=== PATIENT | female | born 1975 | race Caucasian/White ===

== ENCOUNTER → 2021-07-29 | Outpatient (CLI) | payer BC ==
[~2021-07-29] MED LIST: ARMO120T PO; SETL1TAB PO
== END ==
LOC: M LABSMTC 10:05
PROVIDERS: ATTEND Anesthesiology
DX: Z01.812 Encounter for preprocedural laboratory examination (principal); Z11.52 Encounter for screening for COVID-19

== ENCOUNTER 2021-08-03 05:59 | Day surgery (SDC) | payer BC ==
[2021-08-03] VITALS (9 sets, daily range): BP systolic 109–127; BP diastolic 57–68
[~2021-08-03] VITALS: Ht 160 cm; Wt 84.4 kg
[2021-08-03] MEDS ORDERED: ceFAZolin SOD 2 GM in IV 1 EA IV ONE (06:00)
[2021-08-03] MEDS ORDERED: LR 1,000 ML IV ONE (06:00)
[2021-08-03] MEDS ORDERED: LIDOCAINE 1% MDV 20ML VIAL SQ PRN (06:00)
[2021-08-03 06:54] LABS: HCG, SERUM QUALITATIVE NEGATIVE (NEGATIVE)
[2021-08-03] MEDS ORDERED: SCOPOLAMINE 1MG TRANSDERMAL PATCH TOP ONE (07:05)
[2021-08-03] MEDS ORDERED: propofoL 200 MG/20 ML VIAL As Ordered ONE (07:55)
[2021-08-03] MEDS ORDERED: SUGAMMADEX SODIUM 500 MG/5 ML VIAL (BRIDION) As Ordered ONE (07:55)
[2021-08-03] MEDS ORDERED: dexameTHASONE 4 MG/ML 1ML VIAL (J1100 PER 1MG) As Ordered ONE (07:55)
[2021-08-03] MEDS ORDERED: LIDOCAINE 2% 100MG/5ML SDV (FOR ANES.) As Ordered ONE (07:55)
[2021-08-03] MEDS ORDERED: MIDAZOLAM INJ 2MG/2ML VIAL (J2250 PER 1MG) As Ordered ONE (07:55)
[2021-08-03] MEDS ORDERED: ONDANSETRON 4MG/2ML VIAL As Ordered ONE (07:55)
[2021-08-03] MEDS ORDERED: ROCURONIUM BROMIDE 50 MG/5 ML VIAL As Ordered ONE ×2 (07:55→08:16)
[2021-08-03] MEDS ORDERED: HYDROmorphone HCL 2 MG/ML 1ML VIAL As Ordered ONE (07:55)
[2021-08-03] MEDS ORDERED: KETOROLAC 60MG 2ML VIAL As Ordered ONE (07:55)
[2021-08-03] MEDS ORDERED: fentaNYL 100 MCG/2 ML INJECTION (J3010) As Ordered ONE (07:55)
[2021-08-03] MEDS ORDERED: ACETAMINOPHEN 1000MG 100ML IV BTL (OFIRMEV) (J0131 PER 10MG) As Ordered ONE (07:55)
[2021-08-03] MEDS ORDERED: GLYCOPYRROLATE INJ 0.2 MG/ML 2 ML VIAL As Ordered ONE (08:21)
[2021-08-03 08:31] LABS: HEMATOCRIT 41.5 % (36.0-47.0); HEMOGLOBIN 13.7 g/dl (12.0-15.5); MEAN CORPUSCULAR HEMOGLOBIN 28.7 pg (27.0-33.0); PLATELET COUNT, AUTOMATED 210 10^3/uL (150-450); RED BLOOD COUNT 4.77 10^6/uL (4.00-5.40); WHITE BLOOD COUNT 5.9 10^3/uL (4.0-10.0)
[2021-08-03] MEDS ORDERED: MORPHINE 1MG/ML IN 0.9% NACL 100ML IV BAG As Ordered ONE (09:53)
[2021-08-03] MEDS ORDERED: EPIDURAL/PCA KEYS XX PRN (10:15)
[2021-08-03] MEDS ORDERED: NS 1,000 ML IV SCH (10:15)
[2021-08-03] MEDS ORDERED: MORPHINE 1MG/ML IN 0.9% NACL 100ML IV BAG IV PRN (10:15)
[2021-08-03] MEDS ORDERED: oxyCODONE 5MG TAB PO PRN (10:15)
[2021-08-03] MEDS ORDERED: HYDROMORPHONE HCL 0.5 MG/ 0.5 ML SYRINGE (J1170 PER 1) IV PRN (10:15)
[2021-08-03] MEDS ORDERED: NALBUPHINE HCL 10 MG/ML AMP (J2300) IV PRN (10:15)
[2021-08-03] MEDS ORDERED: LR 1,000 ML IV SCH (10:15)
[2021-08-03] MEDS ORDERED: ONDANSETRON 4MG/2ML VIAL IV PRN (10:15)
[2021-08-03] MEDS ORDERED: diphenhydrAMINE 50MG/ML VIAL (J1200) IV PRN (10:15)
[2021-08-03] MEDS ORDERED: fentaNYL 100 MCG/2 ML INJECTION (J3010) IV PRN (10:15)
[2021-08-03] MEDS ORDERED: NALOXONE INJ 0.4MG/1ML VIAL (J2310 PER 1MG) IV PRN (10:15)
[2021-08-03] MEDS: AZELASTINE 137MCG NASAL SPY 30 ML (ASTELIN) SCH (11:00)
[2021-08-03] MEDS: LORATADINE 10 MG TAB PO SCH (11:00)
[2021-08-03] MEDS: LR 1,000 ML IV SCH ×2 (14:32→21:02)
[2021-08-03] MEDS: IBUPROFEN 600MG TAB PO PRN ×2 (15:41→23:35)
--- NOTE | 2021-08-03 16:32 | RO ---
OPERATIVE NOTE DATE OF OPERATION: 08/03/2021 PREOPERATIVE DIAGNOSIS/INDICATIONS FOR SURGERY: Pain, bleeding, fibroids. POSTOPERATIVE DIAGNOSIS: Pain, bleeding, fibroids. PROCEDURE: Robotic-assisted hysterectomy with bilateral salpingo-oophorectomy. SURGEON: Courtney Silvestre MD LACQUERER: Mariposa Rosales ANESTHESIA: General endotracheal anesthesia. DESCRIPTION OF PROCEDURE/FINDINGS: Marita was brought to the OR where sufficient general endotracheal anesthesia was induced. She was prepped, draped and positioned in the usual fashion. The uterine manipulator was placed after the uterus had been sounded to 12. Attention was turned to the abdomen. Transverse semilunar incision was made below the umbilicus. Sharp and blunt dissection were continued through subcutaneous tissue to the level of the rectus fascia where transverse incision was made, #0 Vicryl retention sutures were placed and the peritoneum was entered under direct visualization with open laparoscopic technique. The Corine cannula was then placed and CO2 insufflation begun. After adequate CO2 insufflation the peritoneal cavity was visualized. There were normal shiny peritoneal surfaces throughout. There were no excrescences, ascites, or exudate. The ovaries were normal in appearance. There were some minor adhesions of the descending colon along the left side as is very common, these are pictured, again quite minor. There were definitely large fibroids and recruited blood supply and varicosities, also as noted in the operative photos as would be expected with this fibroid uterus. The two left-sided, one right-sided ports were placed and then attention was turned to work from the console. Working from the robotic console, the left infundibulopelvic ligament was obscured by those adhesions so they were brought down using cold scissors and then infundibulopelvic ligament elevated. We were readily able to identify the ureters in this patient and they were well away from our field of dissection. We cauterized the infundibulopelvic, carefully dissected through it, again using bipolar cautery and then cold scissors. We proceeded through the posterior leaflet of the broad ligament on the left side to the round ligament which was then transected as well. We moved our attention to the patient's right side where similarly we isolated the infundibulopelvic, cauterized and transected it and continued that dissection to the round. Having dissected the round on both sides we back-filled the bladder and were able to confirm its location. We then marked and dissected the peritoneal surface over the cup because we knew there was a good blood supply and before we approached all that we wanted our landmarks marked and the dissection begun where it was accessible. In the midline anteriorly and posteriorly we were able to get a good initial dissection to isolate those areas. We then cauterized the uterine vasculature on the patient's right side and then went to the left where there was considerably more varicosities and cauterized that as well. We did not transect the vasculature until we had done that initial cauterization and of course on the left side where there were all those varicosities after we cauterized we had to cauterize again after some dissection because dissection exposed more vessels as is typical in those cases. Having cauterized and then eventually transected the uterine vasculature, we were able to create the colpotomy anteriorly, we were able to start that dissection and we had already gotten the bladder well away so we continued that dissection along the left side, across posteriorly and then up across the right side and with the cervix completely transected we were able with some manipulation to deliver the uterus into the vagina. Despite the multiple fibroids it was narrow and long rather than super wide fortunately which certainly facilitates careful delivery into the vagina. We used the uterus to maintain pneumo while we then closed the vaginal cuff. There were vaginal pumpers on both angles so we separately took V-Locs for the angles to control these before we completed the closure of the cuff and with this we had good approximation and hemostasis achieved. We waited, let some of the pressure down, we did some more and irrigated and suctioned to confirm that we had good hemostasis. We went ahead and released the pneumo abdominally, removed the instruments and closed the umbilical wound with deep closure of #0 Vicryl retention sutures and then skin with 3-0 Vicryl. The skin was used on the 8 mm ports, two on the left and one on the right as well. After closure of the wound with good approximation and hemostasis dry, sterile dressings were applied. ESTIMATED BLOOD LOSS FOR THE PROCEDURE: About 50 mL. FLUID REPLACEMENT: Crystalloid. COMPLICATIONS: None. CONDITION AND DISPOSITION: Marita tolerated the procedure well and was recovering in the recovery room in good condition.
[2021-08-04 02:03] VITALS: BP 113/64
[2021-08-04] MEDS ORDERED: NORCO, ANEXSIA 5/325MG TABLET (HYDROcodone/ACETAMINOPHEN) PO PRN (06:00)
[2021-08-04 06:22] VITALS: BP 114/57
[2021-08-04] MEDS: IBUPROFEN 600MG TAB PO PRN (07:50)
[2021-08-04] MEDS: AZELASTINE 137MCG NASAL SPY 30 ML (ASTELIN) SCH (07:56)
[2021-08-04] MEDS: LORATADINE 10 MG TAB PO SCH (07:56)
[2021-08-04] MEDS: LR 1,000 ML IV SCH (08:00)
[2021-08-04 08:09] LABS: HEMATOCRIT 38.6 % (36.0-47.0); HEMOGLOBIN 12.5 g/dl (12.0-15.5); MEAN CORPUSCULAR HEMOGLOBIN 28.5 pg (27.0-33.0); MEAN CORPUSCULAR HGB CONC 32.4 g/dl (32.0-36.5); MEAN CORPUSCULAR VOLUME 88.1 fl (80.0-96.0); PLATELET COUNT, AUTOMATED 182 10^3/uL (150-450); RED BLOOD COUNT 4.38 10^6/uL (4.00-5.40); WHITE BLOOD COUNT 11.7 10^3/uL (4.0-10.0)
[2021-08-04] MEDS ORDERED: MULTIVITAMINS/MINERALS THERAP 1 TAB PO SCH (09:00)
[2021-08-04] MEDS ORDERED: THYROID 30 MG TAB PO SCH (09:00)
[2021-08-04] MEDS ORDERED: HYDR-3715 PO (09:24)
[2021-08-04] MEDS ORDERED: IBUP-1114 PO (09:24)
== END 2021-08-04 09:52 | disposition home or self-care (01) ==
LOC: M SDC 05:59 → M PED 10:55 → M OBS 18:26 → M SDC 08-04 09:52
PROVIDERS: ATTEND Obstetrics & Gynecology
DX: D25.9 Leiomyoma of uterus, unspecified (principal); R10.2 Pelvic and perineal pain; N83.209 Unspecified ovarian cyst, unspecified side; E03.9 Hypothyroidism, unspecified; Z79.899 Other long term (current) drug therapy
CPT/HCPCS: 36415; 58571; 84703; 85027; 86850; 86900; 86901; 88307; J0131; J0690; J1100; J1170; J1885; J2250; J2405; J3010; S2900

== ENCOUNTER → 2021-11-07 | Outpatient (REF) | payer BC ==
[~2021-11-07] MED LIST changes: +HYDR-3715 PO; +IBUP-1114 PO
== END ==
LOC: M LAB REF 16:10
PROVIDERS: ATTEND Internal Medicine
DX: E03.9 Hypothyroidism, unspecified (principal)

== ENCOUNTER → 2022-05-28 | Outpatient (CLI) | payer BC ==
[~2022-05-28] MED LIST changes: +ESTR1DIS3; +LEVO100T5; +SULF500T2
== END ==
LOC: M LABSMTC 11:51
PROVIDERS: ATTEND Anesthesiology
DX: Z01.812 Encounter for preprocedural laboratory examination (principal); Z20.822 Contact with and (suspected) exposure to COVID-19

== ENCOUNTER → 2022-07-15 | Outpatient (CLI) | payer BC ==
[~2022-07-15] MED LIST changes: +AZEL1SPR3
== END ==
LOC: M LABSMTC 11:04
PROVIDERS: ATTEND Surgery
DX: Z01.812 Encounter for preprocedural laboratory examination (principal); Z20.822 Contact with and (suspected) exposure to COVID-19

== ENCOUNTER → 2022-07-17 | Outpatient (CLI) | payer BC | LOC: M SOG 10:30 | PROVIDERS: ATTEND Orthopaedic Surgery Hand Surgery | DX: M79.641 Pain in right hand (principal) ==

== ENCOUNTER 2022-07-19 09:59 | Day surgery (SDC) | payer BC ==
[~2022-07-19] VITALS: Ht 162.6 cm; Wt 83.5 kg
[~2022-07-19 09:59] MED LIST changes: +NS 1,000 ML IV ONE
[2022-07-19] MEDS ORDERED: LIDOCAINE 2% 100MG/5ML SDV (FOR ANES.) As Ordered ONE (10:48)
[2022-07-19] MEDS ORDERED: propofoL 200 MG/20 ML VIAL As Ordered ONE ×2 (10:48→10:52)
[2022-07-19] MEDS ORDERED: fentaNYL 100 MCG/2 ML INJECTION As Ordered ONE (10:48)
[2022-07-19 11:58] VITALS: BP 119/66
== END 2022-07-19 12:06 | disposition home or self-care (01) ==
LOC: M OPP 09:59
PROVIDERS: ATTEND Surgery
DX: Z12.11 Encounter for screening for malignant neoplasm of colon (principal); Z80.0 Family history of malignant neoplasm of digestive organs; D12.6 Benign neoplasm of colon, unspecified; Z79.899 Other long term (current) drug therapy; Z79.818 Long term (current) use of other agents affecting estrogen receptors and estrogen levels; E03.9 Hypothyroidism, unspecified; M19.072 Primary osteoarthritis, left ankle and foot; M19.071 Primary osteoarthritis, right ankle and foot; Z86.16 Personal history of COVID-19
CPT/HCPCS: 45380; 88305; J3010

== ENCOUNTER → 2022-07-29 | Outpatient (CLI) | payer BC ==
[~2022-07-29] MED LIST changes: -NS 1,000 ML IV ONE
== END ==
LOC: M LABSMTC 10:20
PROVIDERS: ATTEND Anesthesiology
DX: Z01.812 Encounter for preprocedural laboratory examination (principal); Z11.52 Encounter for screening for COVID-19

== ENCOUNTER 2022-08-03 06:58 | Day surgery (SDC) | payer BC ==
[~2022-08-03] VITALS: Ht 160 cm; Wt 85.7 kg
[~2022-08-03 06:58] MED LIST changes: +LIDOCAINE W/EPINEPHRINE 1% 20ML VIAL XX ONE; +SODIUM BICARBONATE 8.4% INJ 50MEQ 50ML VIAL XX ONE
[2022-08-03] MEDS ORDERED: BACITRACIN OINTMENT 30GM TUBE As Ordered ONE (09:26)
[2022-08-03 10:29] VITALS: BP 143/72
== END 2022-08-03 10:55 | disposition home or self-care (01) ==
LOC: M SDC 06:58
PROVIDERS: ATTEND Orthopaedic Surgery Hand Surgery
DX: M65.311 Trigger thumb, right thumb (principal); M65.341 Trigger finger, right ring finger; E03.9 Hypothyroidism, unspecified; M19.071 Primary osteoarthritis, right ankle and foot; M19.072 Primary osteoarthritis, left ankle and foot; Z79.899 Other long term (current) drug therapy; Z79.890 Hormone replacement therapy